=== PATIENT | male | born 1945 | race Caucasian/White ===

== ENCOUNTER 2021-01-03 06:17 | Day surgery (SDC) | payer MEDICARE, OTHER ==
[~2021-01-03] VITALS: Ht 175.3 cm; Wt 77.6 kg
[~2021-01-03 06:17] MED LIST: IBUPROFEN200 MG PO; LEVOFLOXACIN500 MG PO; OMEPRAZOLE40 MG PO; TYLENOL W/CODEI1 TAB PO; VITAMIN B12 PO; ZOCOR20 MG PO
[2021-01-03 06:50] LABS: CALC OSMOLALITY 279 mosm/kg (275-300); CALCIUM 9.3 mg/dL (8.5-10.1); CARBON DIOXIDE 29.7 mmol/L (21.0-32.0); CHLORIDE - SERUM 103 mmol/L (98-107); GLUCOSE 94 mg/dL (74-106); POTASSIUM - SERUM 4.2 mmol/L (3.5-5.1); SODIUM 140 mmol/L (136-145); UREA NITROGEN 15 mg/dL (7-18); eGFR NON AFRICAN AMERICAN 77 mL/min (90-120)
[2021-01-03 07:06] LABS: BASOPHILS 0.2 % (0-2); EOSINOPHILS 1.7 % (0-7); HEMATOCRIT 47.4 % (42.0-54.0); HEMOGLOBIN 15.8 g/dL (13.5-17.5); IMMATURE GRANULOCYTES 0.2 % (0-5); LYMPHOCYTE ABS# 1.78 10x3/uL (1.32-3.57); LYMPHOCYTES 34.1 % (15-50); MCH 30.6 pg (26.0-34.0); MCHC 33.3 g/dL (31.0-37.0); MCV 91.7 fL (80.0-100.0); MEAN PLATELET VOLUME 11.5 fL (7.4-10.4); MONOCYTES 11.1 % (2-11); NEUTROPHIL ABS# 2.75 10x3/uL (1.78-5.38); NEUTROPHILS 52.7 % (40-80); PLATELET COUNT 231 10x3/uL (130-400); RBC 5.17 10x6/uL (4.20-6.10); RDW 13.1 % (11.5-14.5); WBC 5.2 10x3/uL (4.8-10.8)
[2021-01-03 07:26] VITALS: BP 139/74; Ht 175.3 cm; Wt 77.6 kg
[2021-01-03] MEDS ORDERED: TYLENOL W/CODEI1 TAB PO (10:24)
--- NOTE | 2021-01-03 16:27 | NUR ---
1120 BLADDER SCAN DONE BECAUSE PT HAVING SOME PAIN IN BLADDER AREA. 64ML 1210 medicated for pain. 1310 pain relieved and still unable to urinate. ivf APPROX 1700 TOTAL.DRINKING APPROX 2 LARGE CUPS OF FLUID. 1420 PT ROLING IN BED IN PAIN STATED HE CANT URINATE. 1430 INSERTED A LOPEZ CATH AND RECIEVED 750ML CLEAR YELLOW URINE. 1515 LOPEZ REMOVED AND INSTRUCTED IF UNABLE TO URINATE BY 11PM TO GO TO THE ER. 1530 PT STOOD UP AND MODERATE AMT OF BLOOD NOTED ON FLOOR. PT ASSISTED BACK TO BED AND ON SIDE. NO ACTIVE BLEEDING NOTED AND ANAL AREA BRUISED. ICE PACK APPLIED. 1545 INSTRUCTIONS GIVEN AND PT ASSISTED WITH GETTING DRESSED.
--- NOTE | 2021-01-03 16:39 | NUR ---
1510 IV REMOVED AND PRESSURE HELD
== END 2021-01-03 16:15 | disposition home or self-care (01) ==
LOC: D.OPS 06:17
PROVIDERS: Anesthesiology; ATTEND Surgery
DX: K64.8 Other hemorrhoids (principal); K64.4 Residual hemorrhoidal skin tags

== ENCOUNTER 2021-01-06 08:45 | Observation (INO) | payer MEDICARE, OTHER ==
[~2021-01-06] VITALS: Ht 175.3 cm; Wt 76.2 kg
[2021-01-06 09:56] LABS: BASOPHILS 0.2 % (0-2); EOSINOPHILS 0.6 % (0-7); HEMATOCRIT 37.1 % (42.0-54.0); HEMOGLOBIN 12.5 g/dL (13.5-17.5); IMMATURE GRANULOCYTES 0.1 % (0-5); LYMPHOCYTE ABS# 1.25 10x3/uL (1.32-3.57); LYMPHOCYTES 11.9 % (15-50); MCH 30.9 pg (26.0-34.0); MCHC 33.7 g/dL (31.0-37.0); MCV 91.6 fL (80.0-100.0); MONOCYTES 11.7 % (2-11); NEUTROPHILS 75.5 % (40-80); PLATELET COUNT 209 10x3/uL (130-400); RBC 4.05 10x6/uL (4.20-6.10); RDW 13.1 % (11.5-14.5); WBC 10.5 10x3/uL (4.8-10.8)
[2021-01-06 09:58] LABS: CALC OSMOLALITY 273 mosm/kg (275-300); CALCIUM 9.2 mg/dL (8.5-10.1); CARBON DIOXIDE 29.9 mmol/L (21.0-32.0); CHLORIDE - SERUM 102 mmol/L (98-107); GLUCOSE 91 mg/dL (74-106); POTASSIUM - SERUM 4.1 mmol/L (3.5-5.1); SODIUM 137 mmol/L (136-145); UREA NITROGEN 13 mg/dL (7-18); eGFR NON AFRICAN AMERICAN 77 mL/min (90-120)
[2021-01-06 10:04] LABS: APTT 30.6 SECONDS (22.8-39.4); INR 1.08 (0.85-1.17); PROTIME 12.9 SECONDS (11.6-15.0)
[2021-01-06 10:06] LABS: ALBUMIN 3.7 g/dL (3.4-5.0); ALKALINE PHOSPHATASE 50 U/L (30-120); ALT (SGPT) 28 U/L (10-68); BILIRUBIN - TOTAL 0.83 mg/dL (0.2-1.3)
[2021-01-06 11:53] VITALS: Ht 175.3 cm; Wt 76.2 kg
--- NOTE | 2021-01-06 12:10 | NUR ---
ARRIVES TO UNIT PER W/C, STATES THAT HE HAD SURGERY WED AND HAD NOT HAD A BM, CALLED THE DR OFFICE YESTERDAY AND WAS TOLD TO USE MAG CITRATE, STATES THAT HE HAD BLOODY BM ALL NIGHT, WILL CONT TO [facility], SL IN PLACE TO RFA, CL KAYLIE DIET PROVIDED
[2021-01-06 13:44] LABS: HEMATOCRIT 35.6 % (42.0-54.0); HEMOGLOBIN 11.9 g/dL (13.5-17.5)
[2021-01-06 14:22] VITALS: BP 144/67
[2021-01-06 17:30] LABS: HEMATOCRIT 35.3 % (42.0-54.0)
[2021-01-06 19:04] VITALS: BP 129/68
--- NOTE | 2021-01-06 20:00 | NUR ---
AWAKE,ALERT. NO COMPLAINTS VOICED. UP AD JENNIFER IN ROOM. NO DISTRESS NOTED. CL IN REACH
[2021-01-06 22:27] VITALS: BP 182/67
--- NOTE | 2021-01-07 02:08 | NUR ---
I have reviewed this patient and I concur with the Shift Assessment completed by the Licensed Practical Nurse today this shift.
[2021-01-07 05:29] LABS: BASOPHILS 0.2 % (0-2); EOSINOPHILS 2.4 % (0-7); HEMATOCRIT 36.3 % (42.0-54.0); LYMPHOCYTE ABS# 1.68 10x3/uL (1.32-3.57); LYMPHOCYTES 26.7 % (15-50); MCH 30.2 pg (26.0-34.0); MCHC 33.1 g/dL (31.0-37.0); MCV 91.4 fL (80.0-100.0); MEAN PLATELET VOLUME 11.5 fL (7.4-10.4); MONOCYTES 10.5 % (2-11); NEUTROPHIL ABS# 3.79 10x3/uL (1.78-5.38); NEUTROPHILS 60.2 % (40-80); PLATELET COUNT 206 10x3/uL (130-400); RBC 3.97 10x6/uL (4.20-6.10); RDW 13.1 % (11.5-14.5)
[2021-01-07 05:42] LABS: WBC 6.3 10x3/uL (4.8-10.8)
[2021-01-07 05:53] LABS: ALBUMIN 3.1 g/dL (3.4-5.0); ALKALINE PHOSPHATASE 45 U/L (30-120); ALT (SGPT) 22 U/L (10-68); BILIRUBIN - TOTAL 0.65 mg/dL (0.2-1.3); CALC OSMOLALITY 273 mosm/kg (275-300); CALCIUM 8.7 mg/dL (8.5-10.1); CARBON DIOXIDE 30.4 mmol/L (21.0-32.0); CHLORIDE - SERUM 103 mmol/L (98-107); CREATININE - SERUM 0.9 mg/dL (0.6-1.3); GLUCOSE 101 mg/dL (74-106); PROTEIN - SERUM 6.3 g/dL (6.4-8.2); SODIUM 137 mmol/L (136-145); UREA NITROGEN 13 mg/dL (7-18); eGFR NON AFRICAN AMERICAN 87 mL/min (90-120)
[2021-01-07 06:42] VITALS: BP 117/77
[2021-01-07 09:47] VITALS: BP 112/60
--- NOTE | 2021-01-07 10:09 | NUR ---
RESTING IN BED, NO DISTRESS NOTED, CONT TO MONITOR FOR BLEEDINGS
--- NOTE | 2021-01-07 12:00 | NUR ---
REVIEWED DC ORDERS WITH PT, VOICED NO CONCERNS, IV REMOVED, TIP INTACT, TAKEN TO PRIVATE VEHICLE PER WC
== END 2021-01-07 12:14 | disposition home or self-care (01) ==
LOC: D.ER 08:45 → D.MS 10:49 → OBSVTIME 10:49 → D.MS 10:49
PROVIDERS: Family Medicine; ADMIT Surgery; ATTEND Surgery
DX: D62 Acute posthemorrhagic anemia (principal); K62.5 Hemorrhage of anus and rectum